=== PATIENT | male | born 1985 | race Caucasian/White ===

== ENCOUNTER 2017-09-01 23:29 | Emergency (ER) | payer SELFPAY ==
[~2017-09-01] VITALS: Ht 167.6 cm; Wt 83.9 kg
[2017-09-01 23:37] VITALS: BP 150/90
--- NOTE | 2017-09-01 23:45 | NUR ---
TO LOBBY ,AMB, V/S STABLE, EKG DONE,A/W FOR BED, ERMD NOTED
--- NOTE | 2017-09-02 02:50 | NUR ---
PATIENT PRESENTS TO ED WITH C/O CHEST PAIN AND NUMBESS TO HANDS. ASPIRIN TAKEN AT WORK. PT DENIES N/V/D; SKIN IS PINK/WARM/DRY; AAOX4 WITH EVEN AND STEADY GAIT; LUNGS CLEAR BL; HR EVEN AND REGULAR; PT DENIES ANY FEVER, SOB, OR COUGH AT THIS TIME; PATIENT STATES PAIN OF 1/10 AT THIS TIME; VSS; PATIENT POSITIONED FOR COMFORT; HOB ELEVATED; BEDRAILS UP X2; BED DOWN. ER MD MADE AWARE OF PT STATUS.
[2017-09-02 03:36] VITALS: BP 155/82
== END 2017-09-02 03:36 | disposition home or self-care (01) ==
LOC: MED 23:29
DX: F41.9 Anxiety disorder, unspecified (principal); R07.89 Other chest pain; F17.210 Nicotine dependence, cigarettes, uncomplicated
CPT/HCPCS: 93005; 99284